=== PATIENT | female | born 1995 | race Caucasian/White ===

== ENCOUNTER 2021-04-30 01:45 | Emergency (ER) | payer MEDICAID, OTHER ==
[~2021-04-30] VITALS: Ht 167.7 cm; Wt 74.8 kg
[2021-04-30 01:50] VITALS: BP 134/74
--- OUTSIDE RECORDS SUMMARY | 2021-04-30 01:52 | XMS REPORT | Clinical Summary ---
Author Author [facility] Organization [facility] Address Unknown Phone Unavailable Care Team Providers Care Change Management Coordinator Name Role Phone PCP Unavailable Allergies Comments Active Allergy Reactions Severity Noted Date Azithromycin 04/19/2019 Medications No known medications Active Problems Not on file Social History Date Tobacco Use Types Packs/Day Years Used Never Smoker Smokeless Tobacco: Never Used Comments Alcohol Use Standard Drinks/Week Not Currently 0 (1 standard drink = 0.6 o z pure alcohol) Sex Assigned at Date Recorded Not on file Last Filed Vital Signs Reading Time Taken Comments Vital Sign 119/74 04/19/2019 9:49 PM CDT Blood Pressure 96 04/19/2019 9:49 PM CDT Pulse 37.3 C (99.2 F) 04/19/2019 9:49 PM CDT Temperature 16 04/19/2019 9:49 PM CDT Respiratory Rate 97% 04/19/2019 9:49 PM CDT Oxygen Saturation - - Inhaled Oxygen Concentration 70.3 kg (155 lb) 04/19/2019 8:06 PM CDT Weight 167.6 cm (5' 6") 04/19/2019 8:06 PM CDT Height 25.02 04/19/2019 8:06 PM CDT Body Mass Index Plan of Treatment Not on file Results Not on filefrom Last 3 Months Advance Directives For more information, please contact: [phone] Patient Associate Technician Explanation Type Date Recorded Health Care Directive
[2021-04-30] MEDS ORDERED: SULF1TAB38 PO (02:08)
--- NOTE | 2021-04-30 02:09 | ED Integumentary General ---
General Chief Complaint: Skin/Wound Problems Stated Complaint: POSS CYST ON LEFT BUTT CHEEK Nursing Triage Note: Pt awake, alert, oriented, ambulated from waiting room to ER2 without difficulty. Pt reports "big pimple" to buttocks that has been there for a couple of days. States that it is warm to touch. Denies fever. Airway intact. Respirations even et unlabored. Skin warm, dry, appropriate for ethnicity. History of Present Illness Date Seen by Provider: Apr 30, 2021 Time Seen by Provider: 02:06 Initial Comments 24-year-old female presents with a sore on her right buttocks. States that it started out as a small pimple 2 days ago and she tried to pop it and it got worse. Denies any other similar lesions or similar symptoms in the past. She tried to pop it and then it got more painful afterwards. Tonight was unable to sleep so she came to the ER. Allergies and Home Medications Allergies Coded Allergies: azithromycin (Verified Allergy, Unknown, 04/30/21) Home Medications Sulfamethoxazole/Trimethoprim 1 Each Tablet, 1 EACH PO BID Prescribed by: RONNY BATES on 04/30/21 0208 Patient Home Medication List Home Medication List Reviewed: Yes Review of Systems Review of Systems Constitutional: No dizziness, No fever, No malaise, No weakness Respiratory: no symptoms reported Cardiovascular: no symptoms reported Gastrointestinal: no symptoms reported Skin: see HPI, lesions, lumps; No pruritus, No rash Past Hhyxdlh-Neuxbk-Azbsyo Hx Patient Social History Tobacco Use?: No Physical Exam Vital Signs Vital Signs - First Documented 04/30/21 01:50 Temp 37.0 Pulse 89 Resp 22 B/P (MAP) 134/74 (94) Pulse Ox 98 O2 Delivery Room Air Capillary Refill : General Appearance: WD/WN, no apparent distress Skin: other (erythematous papule w surrounding erythema R buttock. moderate central induration without fluctuance ) Progress/Results/Core Measures Results/Orders My Orders Orders - RONNY BATES DO Sulfamethoxazole/Trimet Ds Tab (Bactrim (04/30/21 02:15) Vital Signs/I&O 04/30/21 01:50 Temp 37.0 Pulse 89 Resp 22 B/P (MAP) 134/74 (94) Pulse Ox 98 O2 Delivery Room Air Blood Pressure Mean: 94 Departure Impression Primary Impression: Abscess of skin Qualified Codes: L02.31 - Cutaneous abscess of buttock Disposition: 01 HOME, SELF-CARE Condition: Stable Departure-Patient Inst. Decision time for Depature: 02:07 Referrals: ROMARIO FERNANDEZ (PCP/Family) Primary Care Physician Patient Instructions: Insect Bites and Stings ED Add. Discharge Instructions: follow up with your PCP in 3 days if not improving. Do not poke or squeeze the lesion All discharge instructions reviewed with patient and/or family. Voiced understanding. Scripts Sulfamethoxazole/Trimethoprim (Bactrim Ds Tablet) 1 Each Tablet 1 EACH PO BID, #14 TAB 0 Refills Prov: RONNY BATES DO 04/30/21 RONNY BATES DO Apr 30, 2021 02:09
[2021-04-30] MEDS ORDERED: TRIM/SULFAMETH 160/800 (SEPTRA DS) TAB PO ONE ×2 (02:15)
== END 2021-04-30 02:20 | disposition home or self-care (01) ==
LOC: ER FS 01:50
DX: L02.31 Cutaneous abscess of buttock (principal)
CPT/HCPCS: 99283

== ENCOUNTER 2022-02-15 14:24 | Outpatient (CLI) | payer BC, MEDICAID ==
[~2022-02-15] VITALS: Ht 170 cm; Wt 90.2 kg
[2022-02-15 14:05] VITALS: BP 130/80
[2022-02-15 14:10] VITALS: BP 130/80
[~2022-02-15 14:24] MED LIST: SULF1TAB38 PO
[2022-02-15 14:50] VITALS: BP 129/77
[2022-02-15 15:26] VITALS: BP 129/77
[2022-02-15] MEDS ORDERED: FAMO-119 PO (15:36)
[2022-02-15] MEDS ORDERED: PREN1TAB19 PO (15:36)
[2022-02-15] MEDS ORDERED: HYDR-3584 PO (15:36)
[2022-02-15 15:45] VITALS: BP 129/77
--- NOTE | 2022-02-16 08:29 | Physician Query-Final Dx ---
BINDU,02/16/22 0829: Clinic Account Progress/Dx Physician Query: Please give diagnosis Please include # weeks gestation Date of Service Feb 15, 2022 at 14:24 CYRUS PAK MD 02/16/224: Clinic Account Progress/Dx DIAGNOSIS: Diagnosis Third trimester 31 week gestation abdominal pain in BINDU,SepFeb 16, 2022 08:29 YCRUS PAK MD Feb 16, 2022 21:14
== END 2022-02-15 15:45 | disposition home or self-care (01) ==
LOC: WSo 14:24 → LDRP 14:24 → WSo 15:45
PROVIDERS: ATTEND Family Medicine
DX: O26.893 Other specified pregnancy related conditions, third trimester (principal); R10.9 Unspecified abdominal pain; Z3A.31 31 weeks gestation of pregnancy
CPT/HCPCS: 99214

== ENCOUNTER 2022-03-21 00:07 | Emergency (ER) | payer MEDICAID ==
[~2022-03-21] VITALS: Ht 167.7 cm; Wt 92.9 kg
[~2022-03-21 00:07] MED LIST changes: +FAMO-119 PO; +HYDR-3584 PO; +PREN1TAB19 PO
[2022-03-21 00:15] VITALS: BP 127/81
[2022-03-21] MEDS ORDERED: LACTATED RINGERS 1,000 ML IV STA (00:19)
--- NOTE | 2022-03-21 00:23 | ED GU-Female ---
General Chief Complaint: OB > 20 WEEKS Stated Complaint: 36 WK /CONTRACIONS Nursing Triage Note: Pt presents 36 weeks with frequent contractions. Source: patient Exam Limitations: no limitations History of Present Illness Date Seen by Provider: Mar 21, 2022 Time Seen by Provider: 00:10 Initial Comments 26-year-old female at roughly 36 WGA (with PRESTON of 04/18/22 per patient) coming in because she is feeling regular contractions. This started around 9:45 PM. She took Tylenol, Benadryl, drink fluids and they persisted. She says they are occurring roughly every 5 minutes now. She says she does not feel like her water has broken, she still feels baby moving, no vaginal bleeding. Other than the pain with her contractions, she is denying any other pain, nausea, vomiting, or any other concerns. Her OB is Dr. Holman. Allergies and Home Medications Allergies Coded Allergies: azithromycin (Verified Allergy, Unknown, 04/30/21) Patient Home Medication List Home Medication List Reviewed: Yes No Active Prescriptions or Reported Meds Review of Systems Review of Systems Constitutional: No fever EENTM: No blurred vision Respiratory: No cough Cardiovascular: No chest pain Gastrointestinal: other (cramps) Genitourinary: see HPI Expected Date of Delivery: Apr 11, 2022 Musculoskeletal: no symptoms reported Skin: no symptoms reported Psychiatric/Neurological: No Symptoms Reported Endocrine: No Symptoms Reported Hematologic/Lymphatic: No Symptoms Reported All Other Systemes Reviewed Negative Unless Noted: Yes Past Xecjraa-Glzdsg-Mqrwsf Hx Patient Social History Tobacco Use?: No Past Medical History Surgeries: No Expected Date of Delivery: Apr 11, 2022 Physical Exam Vital Signs Vital Signs - First Documented 03/21/22 03/21/22 00:15 00:50 Temp 36.9 Pulse 105 Resp 18 B/P (MAP) 127/81 (96) Pulse Ox 99 O2 Delivery Room Air Capillary Refill : Less Than 3 Seconds Height, Weight, BMI Height: '" Weight: lbs. oz. kg; 33.00 BMI Method: General Appearance: WD/WN, no apparent distress HEENT: PERRL/EOMI, normal ENT inspection, pharynx normal Neck: non-tender, full range of motion, supple, normal inspection Cardiovascular: regular rate, rhythm, no edema, no murmur Respiratory: chest non-tender, lungs clear, normal breath sounds, no respiratory distress, no accessory muscle use Gastrointestinal: normal bowel sounds, non tender, soft; No distended, No g uarding, No rebound; other (gravid uterus) Extremities: normal range of motion, non-tender, normal inspection, no pedal edema, no calf tenderness, normal capillary refill Neurologic/Psychiatric: no motor/sensory deficits, alert, normal mood/affect Skin: normal color, warm/dry Lymphatic: no adenopathy Progress/Results/Core Measures Suspected Sepsis SIRS Temperature: Pulse: 105 Respiratory Rate: 18 Laboratory Tests 03/21/22 00:20: White Blood Count 11.3H Blood Pressure 127 /81 Mean: 96 Laboratory Tests 03/21/22 00:20: Creatinine 0.52L, Platelet Count 232, Total Bilirubin 0.4 Results/Orders Lab Results Laboratory Tests Test 03/21/22 00:20 03/21/22 00:26 Range/Units White Blood Count 11.3 H 4.3-11.0 10^3/uL Red Blood Count 4.16 3.80-5.11 10^6/uL Hemoglobin 12.0 11.5-16.0 g/dL Hematocrit 36 35-52 % Mean Corpuscular Volume 87 80-99 fL Mean Corpuscular Hemoglobin 29 25-34 pg Mean Corpuscular Hemoglobin Concent 33 32-36 g/dL Red Cell Distribution Width 13.1 10.0-14.5 % Platelet Count 232 130-400 10^3/uL Mean Platelet Volume 11.8 9.0-12.2 fL Immature Granulocyte % (Auto) 0 % Neutrophils (%) (Auto) 66 42-75 % Lymphocytes (%) (Auto) 28 12-44 % Monocytes (%) (Auto) 5 0-12 % Eosinophils (%) (Auto) 0 0-10 % Basophils (%) (Auto) 0 0-10 % Neutrophils # (Auto) 7.4 1.8-7.8 10^3/uL Lymphocytes # (Auto) 3.2 1.0-4.0 10^3/uL Monocytes # (Auto) 0.6 0.0-1.0 10^3/uL Eosinophils # (Auto) 0.0 0.0-0.3 10^3/uL Basophils # (Auto) 0.0 0.0-0.1 10^3/uL Immature Granulocyte # (Auto) 0.0 0.0-0.1 10^3/uL Sodium Level 139 135-145 MMOL/L Potassium Level 4.2 3.6-5.0 MMOL/L Chloride Level 103 98-107 MMOL/L Carbon Dioxide Level 22 21-32 MMOL/L Anion Gap 14 5-14 MMOL/L Blood Urea Nitrogen 6 L 7-18 MG/DL Creatinine 0.52 L 0.60-1.30 MG/DL Estimat Glomerular Filtration Rate 133 BUN/Creatinine Ratio 12 Glucose Level 84 70-105 MG/DL Calcium Level 10.1 8.5-10.1 MG/DL Corrected Calcium 10.4 H 8.5-10.1 MG/DL Total Bilirubin 0.4 0.1-1.0 MG/DL Aspartate Amino Transf (AST/SGOT) 17 5-34 U/L Alanine Aminotransferase (ALT/SGPT) 11 0-55 U/L Alkaline Phosphatase 109 40-136 U/L Total Protein 7.5 6.4-8.2 GM/DL Albumin 3.6 3.2-4.5 GM/DL Urine Color YELLOW Urine Clarity CLEAR Urine pH 7.0 5-9 Urine Specific [place] <=1.005 1.016-1.022 Urine Protein NEGATIVE NEGATIVE Urine Glucose (UA) NEGATIVE NEGATIVE Urine Ketones NEGATIVE NEGATIVE Urine Nitrite NEGATIVE NEGATIVE Urine Bilirubin NEGATIVE NEGATIVE Urine Urobilinogen 0.2 < = 1.0 MG/DL Urine Leukocyte Esterase NEGATIVE NEGATIVE Urine RBC (Auto) NEGATIVE NEGATIVE Urine RBC NONE /HPF Urine WBC RARE /HPF Urine Squamous Epithelial Cells 2-5 /HPF Urine Crystals NONE /LPF Urine Bacteria TRACE /HPF Urine Casts NONE /LPF Urine Mucus SMALL H /LPF Urine Culture Indicated CULTURE PENDING My Orders Orders - DARNELL GRECO MD Cbc With Automated Diff (03/21/22 00:19) Comprehensive Metabolic Panel (03/21/22 00:19) Lactated Ringers (Lr 1000 Ml Iv Solution (03/21/22 00:19) Urinalysis (03/21/22 00:27) Urine Culture (03/21/22 00:27) Vital Signs/I&O 03/21/22 03/21/22 00:15 00:50 Temp 36.9 Pulse 105 105 Resp 18 18 B/P (MAP) 127/81 (96) Pulse Ox 99 O2 Delivery Room Air Capillary Refill : Less Than 3 Seconds Blood Pressure Mean: 96 Progress Note : Progress Note 26-year-old female with above history coming in concerned that she is in labor. ABCs were intact and vitals were stable on presentation. Physical exam with a gravid uterus with palpable contractions occurring roughly every 5 minutes on arrival. An IV was placed and she was given a bolus of IV fluids. She already received Tylenol. She has not had any loss of fluids like her water broke, no vaginal bleeding, and she still feeling baby move. I did a [id number] ultrasound showing baby's head is vertex and heart rate of 150. I contacted the OB charge nurse, and the patient will be transferred to their floor in [place], with Dr. Melvin as the OB specification manager tonight. Departure Impression Primary Impression: Qualified Codes: Z3A.36 - 36 weeks gestation of Additional Impression: Uterine contractions Disposition: 30 STILL A PATIENT Condition: Stable Admissions Decision to Admit Reason: Admit from ER (General) Decision to Admit/Date: Mar 21, 2022 Time/Decision to Admit Time: 00:20 Transfer Method of Transfer: EMS Departure-Patient Inst. Referrals: NO,LOCAL PHYSICIAN (PCP/Family) Primary Care Physician Scripts No Active Prescriptions or Reported Meds DARNELL GRECO MD Mar 21, 2022 00:23
[2022-03-21 00:35] LABS: BASOPHILS % (AUTO) 0 % (0-10); EOSINOPHILS % (AUTO) 0 % (0-10); HEMATOCRIT 36 % (35-52); LYMPHOCYTES # (AUTO) 3.2 10^3/uL (1.0-4.0); LYMPHOCYTES % (AUTO) 28 % (12-44); MEAN CORPUSCULAR HEMOGLOBIN 29 pg (25-34); MEAN CORPUSCULAR HGB CONC 33 g/dL (32-36); MEAN CORPUSCULAR VOLUME 87 fL (80-99); MEAN PLATELET VOLUME 11.8 fL (9.0-12.2); MONOCYTES # (AUTO) 0.6 10^3/uL (0.0-1.0); MONOCYTES % (AUTO) 5 % (0-12); NEUTROPHILS # (AUTO) 7.4 10^3/uL (1.8-7.8); NEUTROPHILS % (AUTO) 66 % (42-75); PLATELET COUNT 232 10^3/uL (130-400); WHITE BLOOD COUNT 11.3 10^3/uL (4.3-11.0)
[2022-03-21 00:46] LABS: BILIRUBIN,URINE NEGATIVE (NEGATIVE); CLARITY,URINE CLEAR; COLOR,URINE YELLOW; GLUCOSE, URINE (UA) NEGATIVE (NEGATIVE); KETONES,URINE NEGATIVE (NEGATIVE); LEUKOCYTE ESTERASE ,URINE NEGATIVE (NEGATIVE); NITRITE,URINE NEGATIVE (NEGATIVE); PROTEIN,URINE NEGATIVE (NEGATIVE)
[2022-03-21 01:01] LABS: BACTERIA,URINE TRACE /HPF; WBC,URINE RARE /HPF
[2022-03-21 01:12] LABS: BILIRUBIN,TOTAL 0.4 MG/DL (0.1-1.0); CALCIUM 10.1 MG/DL (8.5-10.1); CREATININE SERUM 0.52 MG/DL (0.60-1.30)
[2022-03-21 01:13] LABS: ALBUMIN 3.6 GM/DL (3.2-4.5); TOTAL PROTEIN 7.5 GM/DL (6.4-8.2)
[2022-03-21 01:20] LABS: POTASSIUM 4.2 MMOL/L (3.6-5.0)
== END 2022-03-21 00:50 | disposition still patient (30) ==
LOC: EDUNIT# 00:07 → ER FS 00:11
DX: O60.03 Preterm labor without delivery, third trimester (principal); Z28.310 Unvaccinated for COVID-19; Z3A.36 36 weeks gestation of pregnancy
CPT/HCPCS: 36415; 80053; 81000; 85025; 87088

== ENCOUNTER 2022-03-21 01:30 | Outpatient (CLI) | payer MEDICAID ==
[2022-03-21] VITALS (9 sets, daily range): BP systolic 123–132; BP diastolic 67–92
[2022-03-21 02:28] LABS: BILIRUBIN,URINE NEGATIVE (NEGATIVE); CLARITY,URINE CLEAR; COLOR,URINE YELLOW; GLUCOSE, URINE (UA) NEGATIVE (NEGATIVE); KETONES,URINE NEGATIVE (NEGATIVE); LEUKOCYTE ESTERASE ,URINE TRACE (NEGATIVE); NITRITE,URINE NEGATIVE (NEGATIVE); PROTEIN,URINE NEGATIVE (NEGATIVE)
[2022-03-21 03:11] LABS: BACTERIA,URINE TRACE /HPF; SQUAMOUS EPITHELIAL CELL,UR 25-50 /HPF; WBC,URINE RARE /HPF
--- NOTE | 2022-03-23 09:26 | Physician Query-Final Dx ---
Clinic Account Progress/Dx Physician Query: Please give diagnosis Please include # weeks gestation Date of Service Mar 21, 2022 at 01:30 BINDU,SepMar 23, 2022 09:26
== END 2022-03-21 03:57 ==
LOC: WSo 01:30 → LDRP 01:31 → WSo 03:57
PROVIDERS: ATTEND Family Medicine
DX: O62.9 Abnormality of forces of labor, unspecified (principal); Z3A.00 Weeks of gestation of pregnancy not specified
CPT/HCPCS: 81000; 99213

== ENCOUNTER 2022-03-29 13:28 | Outpatient (CLI) | payer MEDICAID ==
[2022-03-29 13:57] VITALS: BP 120/80
[2022-03-29 14:15] VITALS: BP 115/64
[2022-03-29 14:18] LABS: BILIRUBIN,URINE NEGATIVE (NEGATIVE); CLARITY,URINE CLEAR; COLOR,URINE YELLOW; GLUCOSE, URINE (UA) NEGATIVE (NEGATIVE); KETONES,URINE NEGATIVE (NEGATIVE); LEUKOCYTE ESTERASE ,URINE NEGATIVE (NEGATIVE); NITRITE,URINE NEGATIVE (NEGATIVE); PROTEIN,URINE NEGATIVE (NEGATIVE)
[2022-03-29 14:30] VITALS: BP 113/63
[2022-03-29 14:30] LABS: BACTERIA,URINE NEGATIVE /HPF; WBC,URINE RARE /HPF
[2022-03-29 14:41] VITALS: BP 120/80
[2022-03-29 14:45] VITALS: BP 113/61
--- NOTE | 2022-03-30 07:57 | Physician Query-Final Dx ---
Clinic Account Progress/Dx Physician Query: Please give diagnosis Please include # weeks gestation Date of Service Mar 29, 2022 at 13:28 BINDU,SepMar 30, 2022 07:57
== END 2022-03-29 15:04 | disposition home or self-care (01) ==
LOC: LDRP 13:28 → WSo 13:28
PROVIDERS: ATTEND Family Medicine
DX: O42.90 Premature rupture of membranes, unspecified as to length of time between rupture and onset of labor, unspecified weeks of gestation (principal); Z3A.00 Weeks of gestation of pregnancy not specified
CPT/HCPCS: 81000; 84112; 99213

== ENCOUNTER 2022-04-11 19:34 | Inpatient (IN) | payer MEDICAID ==
[~2022-04-11] VITALS: Ht 167.7 cm; Wt 95.3 kg
[2022-04-11 19:47] VITALS: BP 134/84
[2022-04-11 20:06] LABS: BILIRUBIN,URINE NEGATIVE (NEGATIVE); CLARITY,URINE CLEAR; COLOR,URINE YELLOW; GLUCOSE, URINE (UA) NEGATIVE (NEGATIVE); KETONES,URINE NEGATIVE (NEGATIVE); LEUKOCYTE ESTERASE ,URINE 1+ (NEGATIVE); NITRITE,URINE NEGATIVE (NEGATIVE); PROTEIN,URINE NEGATIVE (NEGATIVE)
[2022-04-11 20:14] LABS: BACTERIA,URINE FEW /HPF
[2022-04-11 20:32] VITALS: BP 135/83
[2022-04-11] MEDS ORDERED: TERBUTALINE INJ 1 MG/ML (BRETHINE) AMP SC PRN (21:15)
[2022-04-11] MEDS ORDERED: MINERAL OIL 30 ML TOP PRN (21:15)
[2022-04-11 21:42] VITALS: BP 143/86
[2022-04-11] MEDS: CATHETER FLUSH 10 ML SYR IV SCH (22:00)
[2022-04-11 22:02] LABS: BASOPHILS % (AUTO) 0 % (0-10); EOSINOPHILS % (AUTO) 0 % (0-10); HEMATOCRIT 35 % (35-52); HEMOGLOBIN 11.6 g/dL (11.5-16.0); LYMPHOCYTES # (AUTO) 2.3 10^3/uL (1.0-4.0); LYMPHOCYTES % (AUTO) 17 % (12-44); MEAN CORPUSCULAR HEMOGLOBIN 29 pg (25-34); MEAN CORPUSCULAR HGB CONC 33 g/dL (32-36); MEAN CORPUSCULAR VOLUME 87 fL (80-99); MEAN PLATELET VOLUME 12.4 fL (9.0-12.2); MONOCYTES # (AUTO) 0.6 10^3/uL (0.0-1.0); MONOCYTES % (AUTO) 5 % (0-12); NEUTROPHILS # (AUTO) 10.5 10^3/uL (1.8-7.8); NEUTROPHILS % (AUTO) 78 % (42-75); PLATELET COUNT 221 10^3/uL (130-400); WHITE BLOOD COUNT 13.5 10^3/uL (4.3-11.0)
[2022-04-11] MEDS: LACTATED RINGERS 1,000 ML IV SCH (22:41)
[2022-04-11] MEDS: D5 LR IV SOLUTION 1,000 ML IV SCH (22:41)
[2022-04-11 22:44] VITALS: BP 138/76
[2022-04-11 23:01] VITALS: BP 144/85
[2022-04-11] MEDS: BUTORPHANOL INJ 2 MG/ML (STADOL) VIAL IV PRN (23:21)
[2022-04-11 23:30] VITALS: BP 139/73
[2022-04-12] VITALS (44 sets, daily range): BP systolic 107–149; BP diastolic 64–103
[2022-04-12] MEDS: BUTORPHANOL INJ 2 MG/ML (STADOL) VIAL IV PRN ×2 (03:25→06:09)
[2022-04-12] MEDS ORDERED: PREN-142 PO ×2 (05:29)
[2022-04-12] MEDS ORDERED: FAMO20TA3 PO ×2 (05:29)
[2022-04-12] MEDS: CATHETER FLUSH 10 ML SYR IV SCH ×3 (05:53→21:48)
[2022-04-12] MEDS: D5 LR IV SOLUTION 1,000 ML IV SCH (06:10)
[2022-04-12] MEDS ORDERED: LACTATED RINGERS 1,000 ML IV ONE (06:15)
[2022-04-12] MEDS: LACTATED RINGERS 1,000 ML IV SCH (06:47)
[2022-04-12] MEDS ORDERED: fentaNYL 2 mcg/ml BUPIVA 0.125 100 ML ONE (07:25)
[2022-04-12] MEDS ORDERED: fentaNYL INJ 100 MCG/2 ML AMP ONE ×3 (07:27→13:38)
[2022-04-12] MEDS ORDERED: BUPIVACAINE 0.25% 30 ML (SENSORCAINE) VIAL ONE (07:27)
[2022-04-12] MEDS ORDERED: diphenhydrAMINE 50 MG/ML INJ (BENADRYL) IV PRN (08:00)
[2022-04-12] MEDS ORDERED: NALOXONE 0.4 MG/ML 1 ML (NARCAN) VIAL IV PRN ×2 (08:00→13:15)
[2022-04-12] MEDS ORDERED: ONDANSETRON 4 MG/2 ML (SDV) Z0FRAN IV PRN (08:00)
[2022-04-12] MEDS ORDERED: EPIDURAL (fentaNYL 2 MCG/ML BUPIVA 0.125%)100 ML BAG EPI PRN (08:00)
[2022-04-12] MEDS ORDERED: LACTATED RINGERS 1,000 ML IV SCH (08:00)
[2022-04-12] MEDS ORDERED: fentaNYL 2 mcg/ml BUPIVA 0.125 100 ML EPI PRN (08:15)
--- NOTE | 2022-04-12 09:07 | History & Physical-OB ---
OB - Chief Complaint & HPI Date/Time Date of Admission: Date of Admission: Apr 11, 2022 at 20:30 Date seen by a Provider: Apr 12, 2022 Time Seen by a Provider: 08:05 Chief Complaint/History OB-Reason for Admission/Chief: Rupture of Membranes Hx : 1 Expected Date of Delivery: Apr 18, 2022 Gestational Age in Weeks: 39 Gestational Age in Days: 0 Other reason for admission: Patient presented to L&D after she felt like she had a pop and started leaking some fluid. ROM test at triage came back + so labor was augmented History of Labs O+, Ab neg, Rub Imm HIV/RPR/hepB/C NR Normal 1 hr GTT GBS neg Allergies and Home Medications Allergies Coded Allergies: azithromycin (Verified Allergy, Unknown, 04/30/21) Patient Home Medication List Home Medication List Reviewed: Yes Famotidine (Acid Plaster Helper (FAMOTIDINE)) 20 Mg Tablet, 20 MG PO BID, (Reported) Entered as Reported by: MARIA EUGENIA JOHNSON on 04/12/22528 Last Action: New Order Vit No.124/Iron/FA ( Vitamin Tablet) 27 Mg Iron-800 Mcg Tablet, 1 EACH PO DAILY, (Reported) Entered as Reported by: MARIA EUGENIA JOHNSON on 04/12/22528 Last Action: New Order OB - History Hx of Present Care: Yes Ultrasounds: Normal mid trimester US Obstetrical Complications: None Medical Complications: None Information Induced Hypertension: No Maternal Gestational Diabetes: No Hemorrhage: No Obstetrical History Hx : 1 Patient Past Medical History None Social History/Family History Recreational Drug Use: No Smoking Cessation: Never smoker 2nd Hand Smoke Exposure: No Immunizations Tetanus Booster (TDap): Less than 5yrs Rubella: immune RPR/VDRL: Negative GBS Status: Negative HBsAG: Negative OB - Admission Exam Physical Exam Vitals: Vital Signs 04/12/22 04/12/22 02:01 06:30 Temp 36.0 Pulse 66 Resp 18 B/P (MAP) 119/76 (90) Pulse Ox 98 O2 Delivery Room Air HEENT: NCAT Heart: Rhythm Normal Lungs: Clear Abdomen: Gravid Extremities: Normal Cervical Dilatation: 3cm Effacement: 75% Station: -1 Membranes: Ruptured Amniotic Fluid: Clear Heart Rate: 140's Accelerations: Accelerations Present Decelerations: Variable Decelerations Short Term Variability: Present Water Manager Variability: Average (6-25) Contractions on Admission: < 5 Minutes Apart Labs Laboratory Tests Test 04/11/22 19:50 04/11/22 21:35 Range/Units Urine Color YELLOW Urine Clarity CLEAR Urine pH 6.0 5-9 Urine Specific [place] 1.015 L 1.016-1.022 Urine Protein NEGATIVE NEGATIVE Urine Glucose (UA) NEGATIVE NEGATIVE Urine Ketones NEGATIVE NEGATIVE Urine Nitrite NEGATIVE NEGATIVE Urine Bilirubin NEGATIVE NEGATIVE Urine Urobilinogen 0.2 < = 1.0 MG/DL Urine Leukocyte Esterase 1+ H NEGATIVE Urine RBC (Auto) 3+ H NEGATIVE Urine RBC 10-25 H /HPF Urine WBC 5-10 H /HPF Urine Squamous Epithelial Cells 2-5 /HPF Urine Renal Epithelial Cells NONE /HPF Urine Crystals NONE /LPF Urine Bacteria FEW H /HPF Urine Casts NONE /LPF Urine Mucus NEGATIVE /LPF Urine Culture Indicated YES Membranes Rupture POSITIVE White Blood Count 13.5 H 4.3-11.0 10^3/uL Red Blood Count 3.99 3.80-5.11 10^6/uL Hemoglobin 11.6 11.5-16.0 g/dL Hematocrit 35 35-52 % Mean Corpuscular Volume 87 80-99 fL Mean Corpuscular Hemoglobin 29 25-34 pg Mean Corpuscular Hemoglobin Concent 33 32-36 g/dL Red Cell Distribution Width 13.6 10.0-14.5 % Platelet Count 221 130-400 10^3/uL Mean Platelet Volume 12.4 H 9.0-12.2 fL Immature Granulocyte % (Auto) 0 % Neutrophils (%) (Auto) 78 H 42-75 % Lymphocytes (%) (Auto) 17 12-44 % Monocytes (%) (Auto) 5 0-12 % Eosinophils (%) (Auto) 0 0-10 % Basophils (%) (Auto) 0 0-10 % Neutrophils # (Auto) 10.5 H 1.8-7.8 10^3/uL Lymphocytes # (Auto) 2.3 1.0-4.0 10^3/uL Monocytes # (Auto) 0.6 0.0-1.0 10^3/uL Eosinophils # (Auto) 0.0 0.0-0.3 10^3/uL Basophils # (Auto) 0.0 0.0-0.1 10^3/uL Immature Granulocyte # (Auto) 0.0 0.0-0.1 10^3/uL OB - Assessment/Plan/Diagnosis Assessment Assessment: rupture of membranes Admission Dx Third Trimester 39 week gestation SROM Admission Status: Inpatient Order (span 2 midnights) Reason for Inpatient Admission: labor Plan Other Plan 26 yo G1 @ 39.1 wga here after SROM at home Plan - Epidural in place, pain better controlled - GBS neg - Augmenting labor with pitocin protocol CYRUS PAK MD Apr 12, 2022 09:07
--- NOTE | 2022-04-12 09:11 | Labor Progress Note ---
Labor Progress Note Labor Progress Note Date Seen by Provider: Apr 12, 2022 Time Seen by Provider: 08:50 Subjective: Patient feeling better now that she has epidural. Objective: Having variable decels that recovers well Assessment/Plan: Valeria Castillo is a (26 /Para / ,Gestational Age (wks)39.1 wga here after AROM at home CEFM/TOCO Continue pitocin protocol Anesthesia: epidural in place Anticipate vaginal delivery. Vitals - Labs Vital Signs - I&O Vital Signs Date Time Temp Pulse Resp B/P (MAP) Pulse Ox O2 Delivery O2 Flow Rate FiO2 04/12/22 06:30 36.0 66 18 119/76 (90) Room Air 04/12/22 05:30 63 18 130/75 (93) Room Air 04/12/22 04:30 36.3 63 18 138/80 (99) Room Air 04/12/22 04:00 68 18 129/79 (96) Room Air 04/12/22 03:30 67 18 124/69 (87) Room Air 04/12/22 03:00 36.0 71 18 136/86 (103) Room Air 04/12/22 02:01 36.5 93 18 149/80 (103) 98 Room Air 04/12/22 01:00 73 18 140/84 (102) Room Air 04/12/22 00:00 64 18 134/77 (96) Room Air 04/11/22 23:30 36.0 75 18 139/73 (95) Room Air 04/11/22 23:01 79 18 144/85 (104) Room Air 04/11/22 22:44 79 18 138/76 (96) Room Air 04/11/22 21:42 36.0 87 18 143/86 (105) Room Air 04/11/22 20:32 93 18 135/83 (100) Room Air 04/11/22 19:47 36.0 85 18 134/84 (101) 98 Room Air 04/11/22 19:47 36.0 85 18 98 Room Air I & O 04/12/22 07:00 Intake Total 2000 ml Balance 2000 ml Labs Laboratory Tests 04/11/22 19:50: Urine Color YELLOW, Urine Clarity CLEAR, Urine pH 6.0, Urine Specific [place] 1.015L, Urine Protein NEGATIVE, Urine Glucose (UA) NEGATIVE, Urine Ketones NEGATIVE, Urine Nitrite NEGATIVE, Urine Bilirubin NEGATIVE, Urine Urobilinogen 0.2, Urine Leukocyte Esterase 1+H, Urine RBC (Auto) 3+H, Urine RBC 10-25H, Urine WBC 5-10H, Urine Squamous Epithelial Cells 2-5, Urine Renal Epithelial Cells NONE, Urine Crystals NONE, Urine Bacteria FEWH, Urine Casts NONE, Urine Mucus NEGATIVE, Urine Culture Indicated YES, Membranes Rupture POSITIVE 04/11/22 21:35: White Blood Count 13.5H, Red Blood Count 3.99, Hemoglobin 11.6, Hematocrit 35, Mean Corpuscular Volume 87, Mean Corpuscular Hemoglobin 29, Mean Corpuscular Hemoglobin Concent 33, Red Cell Distribution Width 13.6, Platelet Count 221, Mean Platelet Volume 12.4H, Immature Granulocyte % (Auto) 0, Neutrophils (%) (Auto) 78H, Lymphocytes (%) (Auto) 17, Monocytes (%) (Auto) 5, Eosinophils (%) (Auto) 0, Basophils (%) (Auto) 0, Neutrophils # (Auto) 10.5H, Lymphocytes # (Auto) 2.3, Monocytes # (Auto) 0.6, Eosinophils # (Auto) 0.0, Basophils # (Auto) 0.0, Immature Granulocyte # (Auto) 0.0 CYRUS PAK MD Apr 12, 2022 09:11
[2022-04-12] MEDS ORDERED: OXYTOCIN PRE-MIX DRIP 1,000 ML IV ONE (09:19)
[2022-04-12] MEDS ORDERED: OXYTOCIN PRE-MIX DRIP 500 ML IV SCH (11:00)
--- NOTE | 2022-04-12 11:56 | Labor Progress Note ---
Labor Progress Note Labor Progress Note Date Seen by Provider: Apr 12, 2022 Time Seen by Provider: 11:50 Subjective: Pt denies complaints. Comfortable with epidural. Came to check patient due to variables. Objective: Assessment/Plan: Valeria Castillo is a (26 /Para 1/0 ,Gestational Age (wks)39.2 here for augmentation of labor after SROM at home intolerance to labor with recurrent late decels and variable deceleration: Pitocin off, spoke with patient and family and discussed need for c/section Dr Velazquez notified Vitals - Labs Vital Signs - I&O Vital Signs Date Time Temp Pulse Resp B/P (MAP) Pulse Ox O2 Delivery O2 Flow Rate FiO2 04/12/22 08:25 98 18 130/77 (94) 100 Room Air 04/12/22 08:20 79 18 132/76 (94) 100 Room Air 04/12/22 08:15 71 18 127/76 (93) 99 Room Air 04/12/22 08:10 89 18 124/64 (84) 99 Room Air 04/12/22 08:00 73 18 122/64 (83) 96 Room Air 04/12/22 07:56 72 18 134/73 (93) 96 Room Air 04/12/22 07:50 67 18 133/74 (93) 98 Room Air 04/12/22 07:45 75 18 121/75 (90) 97 Room Air 04/12/22 07:40 77 18 133/79 (97) 98 Room Air 04/12/22 07:35 67 18 121/86 (98) 99 Room Air 04/12/22 07:31 76 18 146/103 (117) Room Air 04/12/22 06:30 36.0 66 18 119/76 (90) Room Air 04/12/22 05:30 63 18 130/75 (93) Room Air 04/12/22 04:30 36.3 63 18 138/80 (99) Room Air 04/12/22 04:00 68 18 129/79 (96) Room Air 04/12/22 03:30 67 18 124/69 (87) Room Air 04/12/22 03:00 36.0 71 18 136/86 (103) Room Air 04/12/22 02:01 36.5 93 18 149/80 (103) 98 Room Air 04/12/22 01:00 73 18 140/84 (102) Room Air 04/12/22 00:00 64 18 134/77 (96) Room Air 04/11/22 23:30 36.0 75 18 139/73 (95) Room Air 04/11/22 23:01 79 18 144/85 (104) Room Air 04/11/22 22:44 79 18 138/76 (96) Room Air 04/11/22 21:42 36.0 87 18 143/86 (105) Room Air 04/11/22 20:32 93 18 135/83 (100) Room Air 04/11/22 19:47 36.0 85 18 134/84 (101) 98 Room Air 04/11/22 19:47 36.0 85 18 98 Room Air I & O 04/12/22 07:00 Intake Total 2000 ml Balance 2000 ml Labs Laboratory Tests 04/11/22 19:50: Urine Color YELLOW, Urine Clarity CLEAR, Urine pH 6.0, Urine Specific [place] 1.015L, Urine Protein NEGATIVE, Urine Glucose (UA) NEGATIVE, Urine Ketones NEGATIVE, Urine Nitrite NEGATIVE, Urine Bilirubin NEGATIVE, Urine Urobilinogen 0.2, Urine Leukocyte Esterase 1+H, Urine RBC (Auto) 3+H, Urine RBC 10-25H, Urine WBC 5-10H, Urine Squamous Epithelial Cells 2-5, Urine Renal Epithelial Cells NONE, Urine Crystals NONE, Urine Bacteria FEWH, Urine Casts NONE, Urine Mucus NEGATIVE, Urine Culture Indicated YES, Membranes Rupture POSITIVE 04/11/22 21:35: White Blood Count 13.5H, Red Blood Count 3.99, Hemoglobin 11.6, Hematocrit 35, Mean Corpuscular Volume 87, Mean Corpuscular Hemoglobin 29, Mean Corpuscular Hemoglobin Concent 33, Red Cell Distribution Width 13.6, Platelet Count 221, Mean Platelet Volume 12.4H, Immature Granulocyte % (Auto) 0, Neutrophils (%) (Auto) 78H, Lymphocytes (%) (Auto) 17, Monocytes (%) (Auto) 5, Eosinophils (%) (Auto) 0, Basophils (%) (Auto) 0, Neutrophils # (Auto) 10.5H, Lymphocytes # (Auto) 2.3, Monocytes # (Auto) 0.6, Eosinophils # (Auto) 0.0, Basophils # (Auto) 0.0, Immature Granulocyte # (Auto) 0.0 CYRUS PAK MD Apr 12, 2022 11:55
[2022-04-12] MEDS ORDERED: FAMOTIDINE 20MG/2ML IV (PEPCID) IV ONE (12:00)
[2022-04-12] MEDS ORDERED: METOCLOPRAMIDE INJ 10 MG/2 ML (REGLAN) IV ONE (12:00)
[2022-04-12] MEDS ORDERED: CITRIC ACID/SOB CIT (BICITRA) 30 ML UDC PO ONE (12:00)
[2022-04-12] MEDS ORDERED: LACTATED RINGERS 1,000 ML IV PRN (12:00)
[2022-04-12] MEDS ORDERED: LIDOCAINE PF 2% 5 ML (XYLOCAINE) VIAL ONE (12:58)
[2022-04-12] MEDS ORDERED: BUPIVACAINE 0.5% 30 ML (SENSORCAINE) VIAL ONE (12:58)
[2022-04-12] MEDS ORDERED: ceFAZolin 2 GM IV Premixed 50 ML ONE (13:05)
[2022-04-12] MEDS ORDERED: MEASLES,MUMPS,RUBELLA 1 EA INJ SC SCH (13:15)
[2022-04-12] MEDS ORDERED: TETANUS,DIPTH,PERTUSS P/F (BOOSTRIX) 0.5 ML VIAL IM SCH (13:15)
[2022-04-12] MEDS ORDERED: morphine INJ 4 MG/ML 1 ML (VIAL/SYRINGE) IV PRN (13:15)
[2022-04-12] MEDS ORDERED: ONDANSETRON 4 MG/2 ML (SDV) Z0FRAN ONE (13:31)
[2022-04-12] MEDS ORDERED: OXYTOCIN PRE-MIX DRIP 500 ML IV ONE (13:31)
[2022-04-12] MEDS ORDERED: proPOfol 200 MG/20 ML (DIPRIVAN) VIAL IV ONE (13:58)
[2022-04-12] MEDS ORDERED: CATHETER FLUSH 10 ML SYR IV SCH (14:00)
[2022-04-12] MEDS: OXYTOCIN PRE-MIX DRIP 500 ML IV SCH ×2 (14:12→15:20)
[2022-04-12] MEDS: KETOROLAC 30 MG/ML VIAL IV SCH ×2 (14:37→21:47)
[2022-04-12] MEDS ORDERED: METHYLERGONOVINE 0.2 MG/ML (METHERGINE) AMP IM ONE (18:00)
[2022-04-12 18:32] LABS: HEMOGLOBIN 9.6 g/dL (11.5-16.0)
[2022-04-12] MEDS: METOCLOPRAMIDE 10 MG (REGLAN) TAB PO SCH (18:46)
[2022-04-12] MEDS: ACETAMINOPHEN 500 MG TAB (TYLENOL) PO SCH (18:46)
--- NOTE | 2022-04-12 20:50 | OPERATIVE REPORT ---
DATE OF SERVICE: 04/12/2022 PREPARTUM DIAGNOSES: G2, P0 at 38 weeks gestation with intolerance to induction following perlabor, rupture of membranes. POSTOPERATIVE DIAGNOSIS: Delivers female, Apgars 6, 8. INDICATIONS: Consult from Dr. Anne for section for intolerance. Cervical dilation 8 cm, unchanged over several hours with intermittent category 2 heart tones, unable to tolerate Pitocin. PROCEDURE: Primary low transverse section. SURGEON: Dr. Velazquez. ANESTHESIA: Epidural. ESTIMATED BLOOD LOSS: 400 mL. COMPLICATIONS: None. CONDITION: Stable. FINDINGS: Fetus in the occiput posterior position with thick meconium, shoulder cord x1. Normal appearing uterus, tubes and ovaries. DESCRIPTION OF PROCEDURE: After the risks, benefits and alternatives of the procedure were described to the patient, she was taken to the operating room where anesthesia was found to be adequate. She was placed in the dorsal supine position with leftward tilt and prepped and draped in the usual sterile fashion with Lord catheter and SCDs in place. A Pfannenstiel skin incision was made and carried through to underlying layer of the fascia. The fascial layer was incised bilaterally. This incision was extended laterally with Palmer scissors. Superior aspect of the incision was grasped with Sebastiansner, elevated and the rectus muscles dissected off. In a similar fashion, the inferior aspect of the incision was grasped with Sebastiansner, elevated and the rectus muscles dissected off. Rectus muscles were in the midline. The peritoneum was identified and entered. This incision was extended superiorly and inferiorly with good visualization of the bladder. The bladder blade was inserted and the vesicouterine peritoneum dissected off the lower uterine segment. A low transverse uterine incision was made, and this incision was extended laterally, and the was delivered with the above findings. Nose and mouth were suctioned, cord clamped and cut, and the handed off to the waiting nurse team. A cord segment was obtained, and cord gases were sent. Cord blood was drawn, and the placenta was expressed and sent for pathology. The uterus was exteriorized and cleared of all clots and debris. The uterine incision was closed with a running locked 0 Monocryl suture. A second of same suture was used to imbricate this incision and excellent hemostasis was obtained. The gutters were cleared of all clots and debris. Uterine atony was encountered with no increase in bleeding. Pitocin had been started following delivery of the . However, atony ensued. A B-Bee stitch was placed with a #1 chromic stitch. The uterus was returned to the abdomen and again hemostasis was appreciated. The perineum was closed with a running 2-0 Vicryl stitch. Hemostasis was visualized as the rectus layer and the fascia was closed with a running 0 Vicryl stitch running lateral to the midline crossing in the midline. The subcutaneous layer was irrigated copiously, and hemostasis was assured and closed with a plain gut stitch. The skin was closed with subcuticular 4-0 Monocryl suture. mesh dressing was applied. The patient tolerated the procedure well. Sponge, lap, needle, instrument counts were correct, and she was taken to the recovery room awake and in stable condition. She received 2 grams of Ancef prior to incision. Job ID: [id number] DocumentID: [id number] Dictated Date: 04/12/2022 16:59:42 Sales Service Professional Date: 04/12/2022 20:49:28 Dictated By: SOCO VELAZQUEZ DO
[2022-04-12] MEDS: DOCUSATE SODIUM 100 MG (COLACE) CAP PO SCH (21:48)
[2022-04-13 00:30] VITALS: BP 120/76
[2022-04-13] MEDS: ACETAMINOPHEN 500 MG TAB (TYLENOL) PO SCH ×5 (00:30→19:49)
[2022-04-13] MEDS: METOCLOPRAMIDE 10 MG (REGLAN) TAB PO SCH ×4 (00:30→18:45)
[2022-04-13 03:28] VITALS: BP 125/81
[2022-04-13] MEDS: KETOROLAC 30 MG/ML VIAL IV SCH ×2 (03:28→09:51)
[2022-04-13] MEDS: CATHETER FLUSH 10 ML SYR IV SCH (03:28)
[2022-04-13] MEDS ORDERED: MILK OF MAGNESIA 400 MG/5 ML 30 ML UDC PO PRN (05:00)
--- NOTE | 2022-04-13 07:10 | Postpartum Progress Note ---
Post Op Post-operative Day #[1] Subjective: Patient is without complaints. Ambulating, voiding after saunders removed. Tolerating a regular diet without nausea or vomiting. Normal lochia. Pain is well controlled with oral pain medications. Passing flatus. breast feeding. Objective: VSS, AF Physical Exam: General - Alert and oriented, no apparent distress Abdomen - Soft, appropriately tender to palpation, non-distended, fundus firm at umbilicus Incision - clean, dry and intact; no erythema or induration, no drainage Extremities - no edema, negative Omi's bilaterally Hb 11.6 --> 9.6 --> P Assessment: [s/p PLTCS] post-operative day # [1] Recovering well, hemodynamically stable Plan: Routine post-operative care. Encourage breast feeding. Encourage ambulation. VTE prophylaxis: SCDs. am Hb pending. was given a dose of methergine yesterday for atony postop, bleeding resolved Plan for discharge POD#2-3 Vitals - Labs Vital Signs - I&O Vital Signs Date Time Temp Pulse Resp B/P (MAP) Pulse Ox O2 Delivery O2 Flow Rate FiO2 04/13/22 03:28 36.3 79 18 125/81 (96) 97 Room Air 04/13/22 00:30 36.0 88 18 120/76 (91) 96 Room Air 04/12/22 21:47 36.0 95 18 129/78 (95) 98 Room Air 04/12/22 18:46 98 Room Air 04/12/22 17:32 37.2 86 20 119/65 (83) 97 Room Air 04/12/22 14:59 37.3 94 18 139/87 (104) 97 Room Air 04/12/22 14:59 37.3 18 139/87 (104) 97 04/12/22 14:59 Room Air 04/12/22 14:48 Room Air 04/12/22 14:48 37.1 18 125/77 (93) 96 04/12/22 14:27 Room Air 04/12/22 14:27 37.2 18 134/90 (105) 97 04/12/22 14:12 Room Air 04/12/22 14:12 37.1 18 134/83 (100) 100 04/12/22 12:45 83 18 143/86 (105) Room Air 04/12/22 12:30 98 18 139/96 (110) Room Air 04/12/22 12:15 86 18 141/81 (101) Room Air 04/12/22 12:00 96 18 143/96 (112) 100 Room Air 04/12/22 11:45 90 18 134/87 (103) 100 Room Air 04/12/22 11:30 81 18 129/74 (92) 99 Room Air 04/12/22 11:15 70 18 123/78 (93) 98 Room Air 04/12/22 11:00 104 18 107/70 (82) 98 Room Air 04/12/22 10:45 80 18 131/76 (94) 98 Room Air 04/12/22 10:30 80 18 124/77 (93) 98 Room Air 04/12/22 10:15 84 18 127/75 (92) 97 Room Air 04/12/22 10:00 96 18 134/78 (96) 98 Room Air 04/12/22 09:45 91 18 132/85 (101) 99 Room Air 04/12/22 09:30 85 18 132/89 (103) 99 Room Air 04/12/22 09:15 75 18 125/79 (94) 100 Room Air 04/12/22 09:00 73 18 123/74 (90) 99 Room Air 04/12/22 08:50 35.2 04/12/22 08:45 68 18 132/73 (92) 99 Room Air 04/12/22 08:30 77 18 126/74 (91) 100 Room Air 04/12/22 08:25 98 18 130/77 (94) 100 Room Air 04/12/22 08:20 79 18 132/76 (94) 100 Room Air 04/12/22 08:15 71 18 127/76 (93) 99 Room Air 04/12/22 08:10 89 18 124/64 (84) 99 Room Air 04/12/22 08:00 73 18 122/64 (83) 96 Room Air 04/12/22 07:56 72 18 134/73 (93) 96 Room Air 04/12/22 07:50 67 18 133/74 (93) 98 Room Air 04/12/22 07:45 75 18 121/75 (90) 97 Room Air 04/12/22 07:40 77 18 133/79 (97) 98 Room Air 04/12/22 07:35 67 18 121/86 (98) 99 Room Air 04/12/22 07:31 76 18 146/103 (117) Room Air I & O 04/13/22 06:59 Intake Total 2550 ml Output Total 150 ml Balance 2400 ml Labs Laboratory Tests 04/12/22 18:10: Hemoglobin 9.6L, Hematocrit 29L Microbiology 04/11/22 Urine Culture - Final, Complete Gram Pos Mixed Bacterial Kelly KIN DIAZ MD Apr 13, 2022 07:10
[2022-04-13] MEDS: DOCUSATE SODIUM 100 MG (COLACE) CAP PO SCH ×2 (09:51→21:00)
[2022-04-13 09:57] VITALS: BP 123/71
[2022-04-13 11:47] LABS: BASOPHILS % (AUTO) 0 % (0-10); EOSINOPHILS % (AUTO) 0 % (0-10); HEMATOCRIT 24 % (35-52); HEMOGLOBIN 7.9 g/dL (11.5-16.0); LYMPHOCYTES % (AUTO) 13 % (12-44); MEAN CORPUSCULAR HEMOGLOBIN 29 pg (25-34); MEAN CORPUSCULAR HGB CONC 33 g/dL (32-36); MEAN CORPUSCULAR VOLUME 89 fL (80-99); MEAN PLATELET VOLUME 11.7 fL (9.0-12.2); MONOCYTES % (AUTO) 7 % (0-12); NEUTROPHILS # (AUTO) 12.1 10^3/uL (1.8-7.8); NEUTROPHILS % (AUTO) 80 % (42-75); PLATELET COUNT 170 10^3/uL (130-400); WHITE BLOOD COUNT 15.3 10^3/uL (4.3-11.0)
--- NOTE | 2022-04-13 13:34 | Anesthesia-Regional Post-Op ---
Regional Patient Condition Mental Status: Alert, Oriented x3 Circulation: Same as Pre-Op Headache: Absent Sensation: Full Recovery Motor Block: Absent Post Op Complications Complications None Follow Up Care/Instructions Patient Instructions None needed. Anesthesia/Patient Condition Patient is doing well, no complaints, stable vital signs, no apparent adverse anesthesia problems. No complications reported per nursing. TUAN PLATT CRNA Apr 13, 2022 13:34
[2022-04-13 15:56] VITALS: BP 108/69
[2022-04-13] MEDS: IBUPROFEN 600 MG (MOTRIN) TAB PO SCH ×2 (15:56→22:32)
[2022-04-13 22:33] VITALS: BP 131/69
[2022-04-14 04:32] VITALS: BP 126/72
[2022-04-14] MEDS: IBUPROFEN 600 MG (MOTRIN) TAB PO SCH ×2 (04:32→11:59)
[2022-04-14] MEDS: METOCLOPRAMIDE 10 MG (REGLAN) TAB PO SCH (04:36)
[2022-04-14] MEDS: ACETAMINOPHEN 500 MG TAB (TYLENOL) PO SCH ×2 (04:42→11:59)
[2022-04-14] MEDS ORDERED: SIMETHICONE 80 MG (MYLICON) CHEW PO PRN (04:45)
[2022-04-14 09:19] VITALS: BP 117/75
[2022-04-14] MEDS: DOCUSATE SODIUM 100 MG (COLACE) CAP PO SCH (09:21)
[2022-04-14] MEDS ORDERED: IBUP-844 PO ×2 (10:29)
[2022-04-14] MEDS ORDERED: OXC5T PO ×2 (10:29)
--- NOTE | 2022-04-15 10:20 | CONSULTATION REPORT ---
DATE OF SERVICE: PROGRESS NOTE SUBJECTIVE:The patient states pain is well controlled, tolerating p.o., lochia is reduced, is going well, ambulating and voiding without difficulty. No complaints. OBJECTIVE: VITAL SIGNS: Stable. She is afebrile. GENERAL: Alert and oriented x3, no acute distress, resting comfortably in the bed. CHEST: Nonlabored. Incision is not evaluated today since she was holding the baby and talking on the phone but has no concerns. EXTREMITIES: Nontender. LABORATORY DATA: Hemoglobin is stable at 8, yesterday at 7.9 with minimal lochia. ASSESSMENT: Status post primary low transverse section, postop day #2, doing well. PLAN: 1. Continue routine postoperative care with postoperative care, care and support. 2. Anticipate dismissal home today with routine followup with Dr. Holman. 3. Oral iron supplement for postoperative anemia. Job ID: [id number] DocumentID: [id number] Dictated Date: 04/14/2022 15:55:18 Cream Separator Operator Date: 04/15/2022 06:48:52 Dictated By: Suzi Velazquez MD
--- NOTE | 2022-04-19 06:07 | Physician Query Clarification ---
PQ-Further Specificity Admission/Discharge Admission Date: Apr 11, 2022 at 20:30 Discharge Date: Apr 14, 2022 at 13:05 CYRUS Alarcon MD The medical record reflects the following clinical scenario: History/Risk Factors: 26 y/o female patient 39 weeks gestation admitted for labor with SROM delivered via primary low transverse section, post operative anemia was documented in medical record. Clinical Findings: EBL- 400 ml, HGB-11.2, 7.9 L, HCT- 35, 29 L. Treatment: Oral iron supplement. Question: Can you further specify Postoperative anemia per the clinical indicators above? Please document a response in the Progress Notes or Discharge Summary. 1. Acute blood loss anemia 2. Iron deficiency anemia 3. Other, with explanation of the clinical findings. 4. Clinically undetermined, no explanation for the clinical findings. PHYSICIAN RESPONSE Can you specify per above: Other, explanation/clinical finding Explanation/Clinical Findings Needs to be sent to Dr Velazquez as she took over OB care after the C/s and doing d/c summ In responding to this query, please exercise your independent professional manny gment. The purpose of this communication is to more accurately reflect the complexity of your patients condition. The fact that a question is asked does not imply that any particular answer is desired or expected. Thank you for your timely response to this clarification. Requestors name: [ ] Phone # [ ] THIS PHYSICIAN QUERY FORM IS A PERMANENT PART OF THE MEDICAL RECORD HECTOR [place] Apr 19, 2022 06:07 CYRUS PAK MD Apr 23, 2022 10:57
--- NOTE | 2022-04-24 22:47 | Physician Query Clarification ---
PQ-Further Specificity Admission/Discharge Admission Date: Apr 11, 2022 at 20:30 Discharge Date: Apr 14, 2022 at 13:05 Dr. KIN DIAZ MD The medical record reflects the following clinical scenario: History/Risk Factors: 26 y/o female patient 39 weeks gestation admitted for labor with SROM delivered via primary low transverse section, post operative anemia was documented in medical record. Clinical Findings: EBL- 400 ml, HGB-11.2, 7.9 L, HCT- 35, 29 L. Treatment: Oral iron supplement. Question: Can you further specify Postoperative anemia per the clinical indicators above? Please document a response in the Progress Notes or Discharge Summary. 1. Acute blood loss anemia 2. Iron deficiency anemia 3. Other, with explanation of the clinical findings. 4. Clinically undetermined, no explanation for the clinical findings. PHYSICIAN RESPONSE Can you specify per above: Other, explanation/clinical finding (acute blood loss anemia) In responding to this query, please exercise your independent professional judgment. The purpose of this communication is to more accurately reflect the complexity of your patients condition. The fact that a question is asked does not imply that any particular answer is desired or expected. Thank you for your timely response to this clarification. Requestors name: [ ] Phone # [ ] THIS PHYSICIAN QUERY FORM IS A PERMANENT PART OF THE MEDICAL RECORD [employer]OR [place] Apr 24, 2022 22:47 KIN DIAZ MD Apr 26, 2022 14:48
--- NOTE | 2022-04-27 03:22 | DISCHARGE SUMMARY ---
DATE OF SERVICE: FINAL DIAGNOSES: G2, P1-0-1-1 status post primary low transverse section for intolerance to induction following prelabor rupture of membranes. PROCEDURES PERFORMED: Epidural . CONSULTATIONS: From Dr. Holman to myself and anesthesia. REASON FOR ADMISSION: Prelabor rupture of membranes. HOSPITAL COURSE: The patient was admitted by her primary provider, Dr. Holman for the above diagnosis. She had induction and upon dilation to 8 cm, had category 2 heart tones that recovered with intrauterine resuscitation efforts, but were unable to continue Pitocin and had no further cervical dilation. She underwent section with an EBL of 400 mL and postoperatively reported per RN and to rounding team, appropriate lochia; however, demonstrated postoperative anemia that was stable prior to dismissal. She was asymptomatic and had stable vitals and did not require any additional therapy. She will discharge home on postop day 2 for routine followup with Dr. Holman. Job ID: [id number] DocumentID: [id number] Dictated Date: 04/26/2022 20:36:49 Mechanical Project Engineer Date: 04/27/2022 03:21:45 Dictated By: Suzi Velazquez MD
== END 2022-04-14 13:05 | disposition home or self-care (01) | DRG 787 ==
LOC: WSo 19:34 → LDRP 19:34 → WSo 20:29 → LDRP 20:30
PROVIDERS: ADMIT Family Medicine; ATTEND Family Medicine
PROC: 10D00Z1 Extraction of Products of Conception, Low, Open Approach (ICD-10-PCS; principal; 2022-04-12 13:06)
DX: O34.33 Maternal care for cervical incompetence, third trimester (principal); D62 Acute posthemorrhagic anemia; O77.0 Labor and delivery complicated by meconium in amniotic fluid; Z3A.39 39 weeks gestation of pregnancy; Z37.0 Single live birth; O90.81 Anemia of the puerperium
CPT/HCPCS: 36415; 81000; 84112; 85014; 85018; 85025; 86850; 86900; 86901; 87088; 94664; 99212

== ENCOUNTER 2022-04-26 12:06 | Emergency (ER) | payer MEDICAID ==
[~2022-04-26] VITALS: Ht 167.7 cm; Wt 83.2 kg
[~2022-04-26 12:06] MED LIST changes: -ONDA4TAB11 PO
--- NOTE | 2022-04-26 12:13 | ED General ---
General Stated Complaint: DIZZINESS; NAUSEA; ELEV BP History of Present Illness Date Seen by Provider: Apr 26, 2022 Time Seen by Provider: 12:11 Initial Comments 26-year-old female sent in by her primary care provider for evaluation. Patient is approximately 2 weeks from a due to failure to descend. Patient reports that she awoke this morning around 430 and just felt a little bit nauseous, dizzy, has a little bit of a headache. She reports that it seems to get worse when she stands up gets better when she rest. She reports that she been drinking okay but not eating real good. She denies any abdominal pain, vaginal pain, urinary pain or abnormal vaginal discharge. No reports of fever or chills. Patient does have a history of migraines. Patient blood pressure at her primary care office was 1 reading in the 150s over 90 the rest in the 120s over 80s. Allergies and Home Medications Allergies Coded Allergies: azithromycin (Verified Allergy, Unknown, 04/30/21) Patient Home Medication List Home Medication List Reviewed: Yes Famotidine ([employer] (FAMOTIDINE)) 20 Mg Tablet, 20 MG PO BID, (Reported) Entered as Reported by: MARIA EUGENIA JOHNSON on 04/12/22528 Ibuprofen (Ibu) 600 Mg Tablet, 600 MG PO Q6H Prescribed by: Suzi Velazquez on 04/14/22 1029 Ondansetron (Ondansetron Odt) 4 Mg Tab.rapdis, 4 MG PO Q6H PRN for NAUSEA/VOMITING Prescribed by: CARLIE ADORNO on 04/26/22 1401 Oxycodone Hcl (Oxyir Tablet) 5 Mg Tab, 5 MG PO Q4HR PRN for PAIN-SEE DOSE INSTRUCTIONS Prescribed by: Suzi Velazquez on 04/14/22 1030 Vit No.124/Iron/FA ( Vitamin Tablet) 27 Mg Iron-800 Mcg Tablet, 1 EACH PO DAILY, (Reported) Entered as Reported by: MARIA EUGENIA JOHNSON on 04/12/22528 Review of Systems Review of Systems Constitutional: No chills; dizziness; No fever; malaise; No weakness EENTM: no symptoms reported Respiratory: no symptoms reported; No cough, No short of breath Cardiovascular: No chest pain, No edema, No palpitations Gastrointestinal: No abdominal pain, No diarrhea; nausea; No vomiting Genitourinary: no symptoms reported : No Musculoskeletal: no symptoms reported Skin: no symptoms reported Psychiatric/Neurological: Denies Depressed, Denies Emotional Problems; Headache; Denies Numbness, Denies Weakness Hematologic/Lymphatic: No Symptoms Reported Immunological/Allergic: no symptoms reported Past Osaqcql-Sflvpk-Pqytkd Hx Immunizations Up To Date Tetanus Booster (TDap): Less than 5yrs Past Medical History Surgery/Hospitalization HX: D&C Surgeries: No Physical Exam Vital Signs Vital Signs - First Documented 04/26/22 12:45 Temp 36.0 Pulse 66 Resp 14 B/P (MAP) 109/64 (79) Pulse Ox 99 O2 Delivery Room Air Capillary Refill : Height, Weight, BMI Height: '" Weight: lbs. oz. kg; 33.88 BMI Method: General Appearance: No Apparent Distress, WD/WN Eyes: Bilateral Eye Normal Inspection, Bilateral Eye PERRL, Bilateral Eye EOMI HEENT: PERRL/EOMI, Pharynx Normal, Moist Mucous Membranes Neck: Full Range of Motion, Non Tender, Supple Respiratory: Lungs Clear, Normal Breath Sounds Cardiovascular: Regular Rate, Rhythm, No Edema Gastrointestinal: Non Tender, Soft, Other ( incision clean dry and intact) Extremity: Normal Capillary Refill, Normal Inspection, Normal Range of Motion; No Slow Capillary Refill Neurologic/Psychiatric: Alert, Oriented x3, No Motor/Sensory Deficits, Normal Mood/Affect, circulation sales representative II-XII Norm as Tested; No Sensory Deficit Progress/Results/Core Measures Suspected Sepsis SIRS Temperature: Pulse: Respiratory Rate: Blood Pressure / Mean: Results/Orders Lab Results Laboratory Tests Test 04/26/22 12:16 04/26/22 13:00 Range/Units Magnesium Level 1.8 1.6-2.4 MG/DL C-Reactive Protein < 0.30 <0.50 MG/DL SARS-CoV-2 RNA (RT-PCR) Not Detected Not Detecte My Orders Orders - CARLIE ADORNO DO Magnesium (04/26/22 12:13) Procalcitonin (Pct) (04/26/22 12:13) Crp Fs (04/26/22 12:13) Lactated Ringers (Lr 1000 Ml Iv Solution (04/26/22 12:22) Orthostatic Vital Signs (Adult (04/26/22 12:22) Promethazine Injection (Phenergan Injec (04/26/22 13:00) Covid 19 Inhouse Test (04/26/22 13:00) Medications Given in ED Current Medications Medications Dose Ordered Sig/Margareth Route Start Time Stop Time Status Last Admin Dose Admin Promethazine HCl 12.5 mg ONCE ONCE IVP 04/26/22 13:00 04/26/22 13:01 DC 04/26/22 13:04 12.5 MG Vital Signs/I&O 04/26/22 04/26/22 04/26/22 12:45 12:52 14:14 Temp 36.0 36.0 Pulse 66 62 63 61 61 Resp 14 14 B/P (MAP) 109/64 (79) 109/60 (76) 105/68 110/57 (74) 100/66 (77) Pulse Ox 99 99 O2 Delivery Room Air Room Air Capillary Refill : Progress Note : Progress Note Patient feeling better following IV fluids and Phenergan. Patient with no significant findings on physical exam or labs. Patient's blood pressure remained around 105 -110 systolic with no indications for preeclampsia at this time. Called discussed with Dr. Pak who is in agreement that she is okay to be discharged. I will discharge her with some Zofran. Dr. Pak's office will follow up with her to make sure she is improving. Patient was stable and discharged home Departure Impression Primary Impression: Dizziness, nonspecific Additional Impression: problem Disposition: 01 HOME, SELF-CARE Condition: Stable Departure-Patient Inst. Referrals: CYRUS PAK MD (PCP) Primary Care Physician Patient Instructions: Dizziness, Adult ED Add. Discharge Instructions: Please follow closely with Dr. Pak Return to the ER with any concerns Scripts Ondansetron (Ondansetron Odt) 4 Mg Tab.rapdis 4 MG PO Q6H PRN for NAUSEA/VOMITING, #20 TAB 0 Refills Prov: CARLIE ADORNO DO 04/26/22 CARLIE ADORNO DO Apr 26, 2022 12:13
[2022-04-26] MEDS ORDERED: LACTATED RINGERS 1,000 ML IV STA (12:22)
[2022-04-26 12:41] LABS: MAGNESIUM 1.8 MG/DL (1.6-2.4)
[2022-04-26 12:52] VITALS: BP_SYST 100; BP_SYST 109; BP_SYST 110; BP_DIAS 57; BP_DIAS 60; BP_DIAS 66
[2022-04-26] MEDS ORDERED: PROMETHAZINE INJ 25 MG/ML (PHENERGAN) AMP IVP ONE (13:00)
[2022-04-26] MEDS ORDERED: ONDA4TAB11 PO (14:01)
[2022-04-26 14:14] VITALS: BP 105/68
== END 2022-04-26 14:11 | disposition home or self-care (01) ==
LOC: EDUNIT# 12:06 → ER FS 12:07
DX: O90.89 Other complications of the puerperium, not elsewhere classified (principal); R42 Dizziness and giddiness; Z20.822 Contact with and (suspected) exposure to COVID-19; Z28.310 Unvaccinated for COVID-19
CPT/HCPCS: 36415; 83735; 84145; 86141; 87636

== ENCOUNTER → 2022-04-26 | Outpatient (CLI) | payer MEDICAID ==
[~2022-04-26] MED LIST changes: +FAMO20TA3 PO; +IBUP-844 PO; +ONDA4TAB11 PO; +OXC5T PO; +PREN-142 PO
[2022-04-26 12:15] LABS: BASOPHILS % (AUTO) 1 % (0-10); EOSINOPHILS # (AUTO) 0.2 10^3/uL (0.0-0.3); EOSINOPHILS % (AUTO) 3 % (0-10); HEMATOCRIT 31 % (35-52); LYMPHOCYTES # (AUTO) 1.7 10^3/uL (1.0-4.0); LYMPHOCYTES % (AUTO) 28 % (12-44); MEAN CORPUSCULAR HEMOGLOBIN 27 pg (25-34); MEAN CORPUSCULAR HGB CONC 33 g/dL (32-36); MEAN CORPUSCULAR VOLUME 84 fL (80-99); MEAN PLATELET VOLUME 10.9 fL (9.0-12.2); MONOCYTES # (AUTO) 0.2 10^3/uL (0.0-1.0); MONOCYTES % (AUTO) 4 % (0-12); NEUTROPHILS # (AUTO) 3.9 10^3/uL (1.8-7.8); NEUTROPHILS % (AUTO) 65 % (42-75); PLATELET COUNT 328 10^3/uL (130-400); WHITE BLOOD COUNT 6.1 10^3/uL (4.3-11.0)
[2022-04-26 12:42] LABS: BILIRUBIN,TOTAL 0.6 MG/DL (0.1-1.0); CALCIUM 9.4 MG/DL (8.5-10.1); CREATININE SERUM 0.79 MG/DL (0.60-1.30); POTASSIUM 3.7 MMOL/L (3.6-5.0)
[2022-04-26 12:43] LABS: ALBUMIN 4.2 GM/DL (3.2-4.5); TOTAL PROTEIN 7.4 GM/DL (6.4-8.2)
[2022-04-26 15:02] LABS: URIC ACID 6.7 MG/DL (2.6-7.2)
== END ==
LOC: LAB FS 11:41
PROVIDERS: ATTEND Family Medicine
DX: O82 Encounter for cesarean delivery without indication (principal)
CPT/HCPCS: 36415; 80053; 82570; 83615; 84156; 84550; 85025

== ENCOUNTER 2022-07-25 11:40 | Emergency (ER) | payer MEDICAID ==
[~2022-07-25] VITALS: Ht 167 cm; Wt 82.7 kg
[~2022-07-25 11:40] MED LIST changes: +ONDA4TAB11 PO
[2022-07-25] MEDS ORDERED: AMOX875T2 PO (11:51)
--- NOTE | 2022-07-25 11:55 | ED EENT ---
History of Present Illness General Chief Complaint: Ear Problems Stated Complaint: HONORIO EAR PAIN Source: patient History of Present Illness Date Seen by Provider: Jul 25, 2022 Time Seen by Provider: 11:41 Initial Comments 26-year-old female presenting with complaints over a week of throat pain and ear pain. This morning she woke up with increased pain to the left ear and decreased hearing. She had a fever of 100.6 F two days ago. She has not tried to see her primary care provider about the symptoms. She denies having a fever or chills today. She has not had a cough, chest pain, shortness of breath, abdominal pain, nausea, vomiting. She does have a child with RSV currently. Timing/Duration: gradual Severity: moderate Location: ear (R), ear (L), throat Prearrival Treatment: no prearrival treatment Associated Symptoms: change in hearing (Decreased hearing from the left ear); No cough, No drooling, No ear drainage, No facial pain/swelling, No malaise; nasal congestion/drainage; No poor fluid intake, No poor solids intake, No sinus infection; sore throat; No tooth pain, No voice change Allergies and Home Medications Allergies Coded Allergies: azithromycin (Verified Allergy, Unknown, 04/30/21) Patient Home Medication List Home Medication List Reviewed: Yes Amoxicillin (Amoxicillin) 875 Mg Tablet, 875 MG PO BID Prescribed by: LYSSA CLINE on 07/25/22 1151 Famotidine (Acid Structures Technician (FAMOTIDINE)) 20 Mg Tablet, 20 MG PO BID, (Reported) Entered as Reported by: MARIA EUGENIA JOHNSON on 04/12/22 0529 Ibuprofen (Ibu) 600 Mg Tablet, 600 MG PO Q6H Prescribed by: Suzi Velazquez on 04/14/22 1029 Ondansetron (Ondansetron Odt) 4 Mg Tab.rapdis, 4 MG PO Q6H PRN for NAUSEA/VOMITING Prescribed by: CARLIE ADORNO on 04/26/22 1401 Oxycodone Hcl (Oxyir Tablet) 5 Mg Tab, 5 MG PO Q4HR PRN for PAIN-SEE DOSE INSTRUCTIONS Prescribed by: Suzi Velazquez on 04/14/22 1030 Vit No.124/Iron/FA ( Vitamin Tablet) 27 Mg Iron-800 Mcg Tablet, 1 EACH PO DAILY, (Reported) Entered as Reported by: MARIA EUGENIA JOHNSON on 04/12/22 0529 Review of Systems Review of Systems Constitutional: see HPI; No chills; fever Eyes: No Symptoms Reported Ears: See HPI Nose: no symptoms reported Mouth: no symptoms reported Throat: see HPI Respiratory: no symptoms reported Cardiovascular: no symptoms reported Gastrointestinal: no symptoms reported Musculoskeletal: no symptoms reported Skin: no symptoms reported; No rash Neurological: No Symptoms Reported Past [id number]-[id number] Hx Immunizations Up To Date Tetanus Booster (TDap): Less than 5yrs First/Initial COVID19 Vaccinat: Not currently vaccinated Past Medical History Surgery/Hospitalization HX: D&C; C Section Surgeries: No Physical Exam Vital Signs Vital Signs - First Documented 07/25/22 11:48 Temp 36.6 Pulse 89 Resp 16 B/P (MAP) 133/71 (91) Pulse Ox 99 O2 Delivery Room Air Height, Weight, BMI Height: '" Weight: lbs. oz. kg; 29.00 BMI Method: General Appearance: WD/WN, no apparent distress Eyes: bilateral eye PERRL, bilateral eye EOMI Ears: right ear other (Effusion present on the right); left ear TM dull (Effusion present on the left), left ear TM red Mouth/Throat: normal mouth inspection, pharynx swelling; No tonsillar exudate Neck: non-tender, full range of motion, supple, lymphadenopathy (R), lymphadenopathy (L) Cardiovascular: normal peripheral pulses, regular rate, rhythm Neurologic/Psychiatric: alert, oriented x 3 Skin: normal color, warm/dry; No rash Progress/Results/Core Measures Results/Orders Lab Results Laboratory Tests Test 07/25/22 11:50 Range/Units Group A Streptococcus Screen NEGATIVE NEGATIVE My Orders Orders - LYSSA CLINE MD Rapid Strep A Screen (07/25/22 11:48) Vital Signs/I&O 07/25/22 07/25/22 11:48 12:25 Temp 36.6 36.6 Pulse 89 89 Resp 16 16 B/P (MAP) 133/71 (91) 133/71 Pulse Ox 99 99 O2 Delivery Room Air Room Air Progress Progress Note #1: Progress Note Check rapid strep test with her having complaints of sore throat. She states that she saw some pus pockets in her throat previously. There is none currently on visual exam. Prescribed antibiotic for the ear infection. Encourage fluids and rest. Antihistamines to help with fluid in your ears and pressure. Check back with primary care provider for continued concerns. Progress Note #2: Progress Note Strep test negative on rapid testing. Culture pending. Continue with treatment for ear infection and symptomatic treatment. Departure Impression Primary Impression: Pharyngitis Qualified Codes: J02.9 - Acute pharyngitis, unspecified Additional Impression: Left acute serous otitis media Qualified Codes: H65.02 - Acute serous otitis media, left ear Disposition: 01 HOME, SELF-CARE Condition: Stable Departure-Patient Inst. Decision time for Depature: 12:11 Referrals: LIU GUY MD (PCP) Primary Care Physician Patient Instructions: Fluid in the Ear ED, Sore Throat, Adult ED, Ear Infections (Otitis Media) in Adults (DC) Add. Discharge Instructions: Try antihistamine over the counter, such as Zyrtec or Claritin, to help with congestion and fluid in ear. Take full course of antibiotics to treat for strep throat. Follow up with your primary care doctor for continued concerns. Your rapid test for Strep was negative today. The lab will perform a culture on the swab and if it grows out strep in 2-3 days when the culture is complete then you will get a call to let you know. The antibiotic you are taking for your ear infection will also cover if you happen to have strep throat from the culture. All discharge instructions reviewed with patient and/or family. Voiced understanding. Scripts Amoxicillin (Amoxicillin) 875 Mg Tablet 875 MG PO BID for otitis media for 10 Days, #20 TAB 0 Refills Prov: LYSSA CLINE MD 07/25/22 LYSSA CLINE MD Jul 25, 2022 11:55
[2022-07-25 12:25] VITALS: BP 133/71
== END 2022-07-25 12:26 | disposition home or self-care (01) ==
LOC: EDUNIT# 11:40 → ER FS 11:41
DX: J02.9 Acute pharyngitis, unspecified (principal); H65.02 Acute serous otitis media, left ear; Z28.310 Unvaccinated for COVID-19; Z88.1 Allergy status to other antibiotic agents
CPT/HCPCS: 87430; 99283

== ENCOUNTER → 2023-06-20 | Outpatient (CLI) | payer MEDICAID ==
[~2023-06-20] MED LIST changes: +AMOX875T2 PO; +FAMO-356 PO; -FAMO20TA3 PO
--- NOTE | 2023-06-20 15:43 | Diagnostic Imaging Report ---
PROCEDURE: US Thyroid. TECHNIQUE: Multiple Real-time grayscale images were obtained of the thyroid in various projections. INDICATION: Hypothyroidism. COMPARISON: None. FINDINGS: Right thyroid lobe: Size (cm): 5 x 1.5 x 1.1 Echotexture: Heterogeneous Vascularity: Normal Nodules: None Isthmus: Size (cm): 0.4 Nodules: None Left thyroid lobe: Size (cm): 4.1 x 1.4 x 1.2 Echotexture: Heterogeneous Vascularity: Normal Nodules: None IMPRESSION: Heterogeneous thyroid with no definite nodule seen. Dictated by: Dictated on workstation # [id number]
== END ==
LOC: RAD 12:14
PROVIDERS: ATTEND Nurse Practitioner Women's Health
DX: E03.9 Hypothyroidism, unspecified (principal)
CPT/HCPCS: 76536

== ENCOUNTER → 2023-06-20 | Outpatient (CLI) | payer MEDICAID ==
--- NOTE | 2023-06-20 17:31 | Diagnostic Imaging Report ---
PROCEDURE: Pelvic complete, transabdominal and transvaginal sonogram. Limited pelvic doppler. TECHNIQUE: Multiple real-time grayscale images were obtained of the pelvis in various projections transabdominally and transvaginally. Limited pelvic duplex images were obtained. HISTORY: Amenorrhea COMPARISON: None available. FINDINGS: The uterus is anteverted and is normal in size. It measures 8.1 x 3.9 x 5.5 cm. The endometrial stripe measures 5 mm in width.There is a 2.1 x 1.8 cm hypoechoic area in the posterior fundus likely representing a fibroid. There are physiologic cysts in both ovaries. No suspicious ovarian lesion. The right ovary measures 1.9 x 2.7 x 2.7 cm and the left ovary measures 5.0 x 2.8 x 4.7 cm. Duplex images reveal normal arterial inflow to both ovaries. There is no free pelvic fluid. IMPRESSION: 1. Small uterine fibroid. Otherwise normal exam. Dictated by: Dictated on workstation # [id number]
== END ==
LOC: RAD 12:15
PROVIDERS: ATTEND Nurse Practitioner Women's Health
DX: D25.9 Leiomyoma of uterus, unspecified (principal)
CPT/HCPCS: 76856